=== PATIENT | male | born 1965 | race African-American/Black ===

== ENCOUNTER 2025-06-11 10:18 | Emergency (ER) | payer OTHER ==
[~2025-06-11] VITALS: Ht 172.7 cm; Wt 79.0 kg
[2025-06-11 10:23] VITALS: TEMP 36.5; O2SAT 97
[2025-06-11 12:45] LABS: BASOPHILS % 0.2 % (0.0-2.0); EOSINOPHILS % 0.8 % (0.0-5.0); HEMATOCRIT. 41.7 % (42.0-52.0); HEMOGLOBIN. 13.3 g/dL (14.0-18.0); LYMPHOCYTES % 9.6 % (20.0-50.0); MEAN PLATELET VOLUME 9.8 fl (7.4-10.4); MONOCYTES % 8.4 % (2.0-8.0); NEUTROPHILS % 81.0 % (40.0-76.0); PLATELET 147 x1000/uL (130-400); RED BLOOD CELL COUNT 4.62 mill/uL (4.7-6.1); RED CELL DISTRIBUTION WIDTH 15.0 % (11.6-14.6)
[2025-06-11] MEDS ORDERED: ACETAMINOPHEN 325MG TABLET PO ONE (12:45)
[2025-06-11 13:08] LABS: CREATININE 1.2 mg/dL (0.6-1.3); TROPONIN I HIGH SENSITIVITY 38 ng/L (3.0-53)
[2025-06-11 13:09] LABS: TROPONIN I HIGH SENSITIVITY 37 ng/L (3.0-53); UREA NITROGEN BLOOD 17 mg/dL (9-23)
[2025-06-11 13:10] LABS: ASPARTATE AMINOTRANSFERASE 48 IU/L (<34)
[2025-06-11 13:11] LABS: BILIRUBIN DIRECT 0.3 mg/dL (<=3.0); BILIRUBIN TOTAL 0.8 mg/dL (0.1-1.0); PROTEIN TOTAL 7.7 g/dL (6.0-8.3)
[2025-06-11] MEDS ORDERED: LIDO-53 TP (13:18)
[2025-06-11 14:35] VITALS: PULSE 78; O2SAT 96
[2025-06-11 14:41] VITALS: TEMP 97.7
[2025-06-11] MEDS: ACETAMINOPHEN 500MG TABLET PO NR (14:41)
[2025-06-11 14:42] VITALS: BP 158/100; RESP 16
[2025-06-11] MEDS: LIDOCAINE 5% PATCH TOP SCH (14:42)
== END 2025-06-11 14:48 | disposition home or self-care (01) ==
LOC: ER 10:18 → CANBEDREQ 14:10 → ER 14:48
DX: S16.1XXA Strain of muscle, fascia and tendon at neck level, initial encounter (principal); R07.9 Chest pain, unspecified; R51.9 Headache, unspecified; I11.9 Hypertensive heart disease without heart failure; I25.2 Old myocardial infarction; Z95.810 Presence of automatic (implantable) cardiac defibrillator; V49.9XXA Car occupant (driver) (passenger) injured in unspecified traffic accident, initial encounter; Y92.410 Unspecified street and highway as the place of occurrence of the external cause; Y93.89 Activity, other specified; Y99.8 Other external cause status
CPT/HCPCS: 36415; 71045; 80048; 80076; 83735; 84484; 85025; 93005; 99285